=== PATIENT | female | born 1980 | race Caucasian/White ===

== ENCOUNTER 2019-09-04 08:41 | Outpatient (CLI) | payer BC, SELFPAY ==
--- NOTE | 2019-09-04 | XR_ITS ---
WS: [id number] CHEST 2 VIEWS HISTORY: DYSPNEA COMPARISON: 03/07/2017 Lungs: Well-expanded lungs. No pneumonia. Stable calcification LEFT upper lobe. Normal vasculature. N o pleural effusion. Cardiac size: Normal. Mediastinum/Aorta: Normal mediastinum. Bones: Normal. Prior cholecystectomy. XR/XR chest 2V* [id number] IMPRESSION: Stable chest with no acute cardiopulmonary disease.
== END 2019-09-04 08:42 | disposition home or self-care (01) ==
PROVIDERS: Family Provider Family Medicine; PCP Family Medicine; Visit Provider Family Medicine
DX: Z76.89 Persons encountering health services in other specified circumstances (principal)

== ENCOUNTER 2019-09-04 09:19 | Outpatient (REF) | payer BC, SELFPAY ==
[2019-09-04 09:37] LABS: D Dimer 0.35 ug/mIFEU (0-0.59)
== END 2019-09-04 09:20 | disposition home or self-care (01) ==
LOC: LAB 09:19
PROVIDERS: Family Provider Family Medicine; PCP Family Medicine; Visit Provider Nurse Practitioner Family
DX: Z01.89 Encounter for other specified special examinations (principal)
CPT/HCPCS: 85378

== ENCOUNTER 2019-09-04 15:28 | Emergency (ER) | payer BC, SELFPAY ==
[2019-09-04 15:45] VITALS: BP 131/80; PULSE 71; RESP 16; TEMP 36.6; O2SAT 99; BMI 27.1
--- NOTE | 2019-09-04 15:51 | PC.NURSE ---
Patient seated in the waiting room. Will continue to monitor.
[2019-09-04 16:37] LABS: Basophils % 0.3 %; Eosinophils % 0.2 %; Hematocrit 46.6 % (37.0-47.0); Hemoglobin 15.7 g/dL (11.5-15.3); Lymphocytes # 3.1 10^3/uL (0.8-4.8); Lymphocytes % 53.7 %; Mean Corpuscular HGB Conc 33.7 g/dL (30.0-36.0); Mean Corpuscular Hemoglobin 27.5 pg (28.0-34.0); Mean Corpuscular Volume 81.8 fL (81-99); Mean Platelet Volume 9.8 fL (7.4-10.4); Monocytes # 0.5 10^3/uL (0.2-0.9); Monocytes % 8.6 %; Neutrophils # 2.1 10^3/uL (1.8-7.7); Nucleated Red Blood Cells % 0 %; Platelet Count 344 10^3/cmm (130-400); White Blood Count 5.8 10^3/uL (4.0-10.0)
[2019-09-04 16:51] LABS: Slide Review Slide Review Perform
[2019-09-04 16:58] LABS: Alanine Aminotransferase 272 U/L (0-33); Albumin Level 4.5 g/dL (3.5-5.2); Alkaline Phosphatase 75 IU/L (35-105); Aspartate Amino Transferase 204 U/L (0-32); Blood Urea Nitrogen 9 mg/dL (6-20); Calcium 9.9 mg/dL (8.5-10.5); Carbon Dioxide 26 mmol/L (22-29); Chloride 99 mmol/L (98-107); Globulin 3.2 g/dL (1.3-4.6); Glomerular Filtration Rate 80.3 mL/min (90-130); Glucose 88 mg/dL (74-109); Lipase 46 U/L (13-60); Sodium 137 mmol/L (136-145); Total Bilirubin 0.5 mg/dL (0.15-1.2); Total Protein 7.7 g/dL (6.6-8.7)
[2019-09-04 17:24] LABS: HCG Qualitative Urine. Negative (Negative)
--- NOTE | 2019-09-04 19:39 | ED_ITS ---
Entered by Cherise Barajas, acting as scribe for Carolina Mcdonald MD Sep 04, 2019 15:28 HPI - Abdominal Pain General: Chief Complaint: Abdominal Pain Stated Complaint: ABD PAIN Time Seen by Provider: 09/04/19 19:39 Source: patient and RN notes reviewed Mode of arrival: ambulatory Limitations: no limitations History of Present Illness: HPI narrative: 38 yo female presents to ED on advise from [facility] due to an elevated liver enzyme reading. The patient states she thought she had the flu that began on 08.21.2019 - body aches, diarrhea, fever. She has lost 15 pounds since that time. She went to [facility] recently and they ran labs. The patient was called today and advised to come to ER. She said she has pain in RUQ and any oral intake causes extreme abdominal pain. She hasn't vomited simply because she is able to keep herself from doing so. MD elicited complaint: abdominal pain Pertinent past history: none Onset (ago): week(s) (2) Pain Consistency: constant Location: RUQ Severity: moderate Quality: cramping Radiation: none Migration to: no migration Exacerbating factors: eating Relieving factors: nothing Associated Symptoms: Reports diarrhea and nausea; Denies dysuria and fever(s) Review of Systems Const: Denies: fever Eyes: Denies: blurry vision or eye discomfort ENMT: Denies: throat pain or dental pain Card: Denies: chest pain Resp: Denies: shortness of breath GI: Reports: abdominal pain, nausea and diarrhea : Denies: painful urination Musc: Denies: neck pain or back pain Skin/Breast: Denies: rash Neuro: Denies: headache Psych: Denies: depression Richard/Lymph: Denies: easy bruising All/Imm: Denies: hives PFSH ED PFSH: Statuses (acute, chronic, etc) shown below reflect problem list status as previously entered and may not be historically accurate Social History Smoking and tobacco status: never smoked Physical Exam Const: COMMON NORMALS: no apparent distress, oriented x3 and healthy appearing HENMT: COMMON NORMALS: normocephalic and head/scalp atraumatic HEAD & SCALP: normocephalic and atraumatic Eye: COMMON NORMALS: PERRL and EOMs intact bilaterally PUPIL: Yes PERRL Neck/C-Spine: COMMON NORMALS: full ROM and supple Chest: COMMONS NORMALS: inspection of chest normal and palpation of chest normal Resp: COMMON NORMALS: normal respiratory effort, no retractions, no use of accessory muscles and clear to auscultation bilaterally AUSCULTATION: clear to auscultation bilaterally Cardio: COMMON NORMALS: regular rate, regular rhythm and no murmurs RATE: regular rate RHYTHM: regular rhythm GI: COMMON NORMALS: normal to inspection, nondistended, normoactive bowel sounds, soft to palpation, non-tender and no masses PALPATION: Yes soft Extremity: COMMON NORMALS: normal to inspection and full ROM Neuro: COMMON NORMALS: oriented x3, moves all extremities and no focal motor deficits Psych: COMMON NORMALS: mental status grossly normal, thought process normal and cooperative THOUGHT PROCESS: normal thought process Skin: COMMON NORMALS: no rashes or lesions noted and no wounds GENERAL SKIN EXAM: no rashes or lesions noted Course Vital Signs: Vital signs: Vital Signs Temperature 97.8 F 09/04/19 15:45 Pulse Rate 71 09/04/19 15:45 Respiratory Rate 16 09/04/19 15:45 Blood Pressure 131/80 09/04/19 15:45 Pulse Oximetry 99 09/04/19 15:45 MDM - Abdominal Pain MDM Narrative: Medical decision making narrative: Patient presents here with abdominal pain is found to have no findings here on CT scan. She is also had vomiting and a cough is all likely viral in origin. She feels much improved here after IV fluids. Will prescribe her Zofran she is to continue hydrate at home. Patient's liver enzymes are mildly elevated and did have them followed. Patient is to return if worsening. Lab Data: Labs: Lab Results 09/04/19 09/04/19 09/04/19 Range/Units 16:26 16:26 16:56 WBC 5.8 (4.0-10.0) 10^3/ uL RBC 5.70 H (4.1-5.3) 10^6/u L Hgb 15.7 H (11.5-15.3) g/dL Hct 46.6 (37.0-47.0) % MCV 81.8 (81-99) fL MCH 27.5 L (28.0-34.0) pg MCHC 33.7 (30.0-36.0) g/dL RDW 12.0 L (12.1-15.1) % Plt Count 344 (130-400) 10^3/c mm MPV 9.8 (7.4-10.4) fL Neut % (Auto) 37.0 % Lymph % (Auto) 53.7 % [place] % (Auto) 8.6 % Eos % (Auto) 0.2 % Baso % (Auto) 0.3 % Neut # (Auto) 2.1 (1.8-7.7) 10^3/u L Lymph # (Auto) 3.1 (0.8-4.8) 10^3/u L [place] # (Auto) 0.5 (0.2-0.9) 10^3/u L Eos # (Auto) 0.0 (0.0-0.8) 10^3/u L Baso # (Auto) 0.0 (0.0-0.1) 10^3/u L Nucleated RBC % (a uto) 0 % Nucleated RBCs # 0.0 /100WBC Sodium 137 (136-145) mmol/L Potassium 4.0 (3.5-5.1) mmol/L Chloride 99 (98-107) mmol/L Carbon Dioxide 26 (22-29) mmol/L Anion Gap 16.0 (5-19) BUN 9 (6-20) mg/dL Creatinine 0.8 (0.5-0.9) mg/dL GFR Calculation 80.3 L (90-130) mL/min Glucose 88 (74-109) mg/dL Calcium 9.9 (8.5-10.5) mg/dL Total Bilirubin 0.5 (0.15-1.2) mg/dL AST 204 H (0-32) U/L ALT 272 H (0-33) U/L Alkaline Phosphata se 75 (35-105) IU/L Total Protein 7.7 (6.6-8.7) g/dL Albumin 4.5 (3.5-5.2) g/dL Globulin 3.2 (1.3-4.6) g/dL Lipase 46 (13-60) U/L HCG, Qual Negative (Negative) Discharge Plan Discharge Patient Disposition: Home, Self-Care Clinical Impression: Abdominal pain Qualifiers: Abdominal location: generalized Qualified Code(s): R10.84 - Generalized abdominal pain Condition: Stable Prescriptions: New Zofran 4 mg tablet 4 mg PO QID PRN (Reason: nausea and vomiting) Qty: 14 RF: 0 EC-Naprosyn 500 mg tablet,delayed release (DR/EC) 500 mg PO BID PRN (Reason: pain) Qty: 20 RF: 0 Discharge Orders: Discharge Order (Routine); Ordered 09/04/19 Ordered By: Carolina Mcdonald Referrals: Ashley Elizabeth DO [Primary Care Provider] - 4-7 days Discharge Diet: Advance as tolerated Discharge Activity: Resume usual activity Patient Instructions: Abdominal Pain (ED) Coding Level of Care Code ED Reproductive Endocrinologist for Chg Fwd Exam Problem Focused The documentation recorded by the Karl knutson Valerie R, accurately reflects the service I personally performed and the decisions made by Tamara obrien Korby, MD Sep 04, 2019 15:28
--- NOTE | 2019-09-04 19:39 | US_ITS ---
WS: [id number] ULTRASOUND ABDOMEN LIMITED CLINICAL INFORMATION: abd pain COMPARISON: None. FINDINGS: Liver Size: Normal. Craniocaudal length: 15.0 cm. Echogenicity: Normal. Surface nodularity: None. Mass (size and location): None. Bile ducts Intrahepatic ducts: Normal. Common bile duct diameter: 1.7 mm. Gallbladder Removed Pancreas Normal as visualized. Right kidney: Normal. Hydronephrosis: None. Size: 9.2 cm x 5.1 cm x 5.5 cm. Abdominal aorta and IVC Visualized portions are normal. Ascites: None. US/US gall bladder [id number] IMPRESSION: 1. Liver is normal. 2. Gallbladder has been removed. 3. Normal common bile duct. 4. No hydronephrosis in right kidney.
--- NOTE | 2019-09-04 19:43 | CTR_ITS ---
PROCEDURE INFORMATION: Exam: CT Abdomen And Pelvis With Contrast Exam date and time: 09/04/2019 7:52 PM Age: 38 years old Clinical indication: Nausea and vomiting; Prior surgery; Surgery date: 6+ months; Surgery type: Gb, appy, hyster; Additional info: Abd pain TECHNIQUE: Imaging protocol: Computed tomography of the abdomen and pelvis with intravenous contrast. Total DLP: 726.21 mGy-cm Radiation optimization: All CT scans at this facility use at least one of these dose optimization techniques: automated exposure control; mA and/or kV adjustment per patient size (includes targeted exams where dose is matched to clinical indication); or iterative reconstruction. Contrast material: OMNIPAQUE 300; Contrast volume: 95 ml; Contrast route: IV; COMPARISON: CT Abdomen/Pelvis [facility] [id number] 08/03/2013 11:22 AM FINDINGS: Lungs: There is mild pneumonitis in the right middle lobe and left lower lobe. Liver: Unremarkable.No mass. Gallbladder and bile ducts: There has been a cholecystectomy. There is no common bile duct dilation. Pancreas: Normal. No ductal dilation. Spleen: Normal. No splenomegaly. Adrenals: Normal. No mass. Kidneys and ureters: There is punctate nephrolithiasis. No hydronephrosis. Unchanged 8 mm hypodensity upper pole right kidney too small to characterize. Otherwise the kidneys have an appropriate appearance. Stomach and bowel: Unremarkable. No obstruction. No mucosal thickening. Appendix: There has been an appendectomy. Intraperitoneal space: There is a trace amount of fluid in the pelvis which is within physiologic limits for a menstruating female. Vasculature: Unremarkable.No abdominal aortic aneurysm. Lymph nodes: Unremarkable.No enlarged lymph nodes. Bladder: Unremarkable as visualized. Reproductive: There has been a hysterectomy. There is a 1.7 cm partially collapsed right ovarian cyst. Bones/joints: Unremarkable. No acute fracture. Soft tissues: Unremarkable. CT/CT abdomen pelvis w con* [id number] IMPRESSION: 1. There is mild pneumonitis in the right middle lobe and left lower lobe. 2. There is a 1.7 cm partially collapsed right ovarian cyst. 3. No bowel thickening or inflammatory changes. Postoperative changes are noted as above. Radiation Dose CTDIVOL = (mGy): DLP = 726.21 (mGy-cm)
[2019-09-04] MEDS: iohexol 300 mg/mL 100 mL Btl IV (19:56)
[2019-09-04] MEDS: sodium chloride 0.9% 1,000 ML 999 ML IV (20:25)
[2019-09-04] MEDS: ondansetron 2 mg/ML SDV 2 mL 4 MG IVP (20:25)
[2019-09-04 21:37] VITALS: BP 99/62; PULSE 62; RESP 14; O2SAT 98
--- NOTE | 2019-09-04 21:38 | PC.NURSE ---
Zofran 4mg po 2 tablets sent home with patient
== END 2019-09-04 21:38 | disposition home or self-care (01) ==
PROVIDERS: Emergency Provider Emergency Medicine; Family Provider Family Medicine; PCP Family Medicine
DX: R10.84 Generalized abdominal pain (principal)
CPT/HCPCS: 74177; 76705; 80053; 81025; 83690; 85025; 96360; 96361; 96374; 99281; 99283; J2405; J7030; Q9967

== ENCOUNTER 2019-10-02 10:18 | Outpatient (CLI) | payer BC, SELFPAY ==
--- NOTE | 2019-10-02 | XR_ITS ---
WS: [id number] ABDOMEN 2 VIEW(S) HISTORY: CONSTIPATION COMPARISON: 12/02/2016 Normal bowel gas pattern. No free air. 2 mm calcification lower pole LEFT kidney. Numerous phleboliths are present in the pelvis. Prior chol ecystectomy. Mild RIGHT convex curvature lumbar spine. XR/XR abdomen min 2V [id number] IMPRESSION: 1. No GI tract obstruction. 2. Prior cholecystectomy.
== END 2019-10-02 10:19 | disposition home or self-care (01) ==
LOC: RADOUTREAD 11:15
PROVIDERS: Family Provider Family Medicine; PCP Family Medicine; Visit Provider Nurse Practitioner
DX: Z01.89 Encounter for other specified special examinations (principal)

== ENCOUNTER 2020-02-23 10:10 | Outpatient (CLI) | payer BC, SELFPAY ==
--- NOTE | 2020-02-23 10:34 | MM_ITS ---
WS: [id number] DIAGNOSTIC BILATERAL DIGITAL MAMMOGRAM WITH CAD Bilateral breast ultrasound, limited HISTORY: LEFT BREAST LUMP COMPARISON: None available. TECHNIQUE: Bilateral craniocaudad, mediolateral oblique, and mediolateral views are submitted. Spot c ompression RIGHT and LEFT cc views. Computer aided detection utilized. Breast composition: The breasts are heterogeneously dense, which may obscure small masses. Triangular markers are placed in multiple areas over each breast in the areas of palpable concern. There are no underlying masses identified or distortion. No suspicious calcifications or nipple retraction. Bilateral breast ultrasound. Ultrasound is directed to the areas of palpable concern. There are no suspicious masses or shadowing. Small cyst in the LEFT breast at 1:00, 2 cm from the nipple with a maximum diameter 4 mm. MM/[place] [id number] IMPRESSION: BI-RADS: 2-Benign FOLLOW UP: 1 Year Follow-up
== END 2020-02-23 10:11 | disposition home or self-care (01) ==
LOC: RADSHAW 10:16
PROVIDERS: PCP Nurse Practitioner; Visit Provider Nurse Practitioner
DX: N63.20 Unspecified lump in the left breast, unspecified quadrant (principal)
CPT/HCPCS: 76642; 77066

== ENCOUNTER → 2020-03-12 10:48 | Outpatient (BNVA) | payer BC, SELFPAY | PROVIDERS: PCP Physician Assistant Medical; Visit Provider Urology | DX: N30.20 Other chronic cystitis without hematuria (principal); N31.9 Neuromuscular dysfunction of bladder, unspecified; R33.9 Retention of urine, unspecified | CPT/HCPCS: 81001 ==

== ENCOUNTER 2020-05-13 08:04 | Outpatient (CLI) | payer BC, SELFPAY ==
--- NOTE | 2020-05-13 08:08 | MR_ITS ---
WS: [id number] MRCP (MAGNETIC RESONANCE CHOLANGIOPANCREATOGRAPHY) HISTORY: Post prandial abdominal pain COMPARISON: 08/03/2013, 09/04/2019 TECHNIQUE: Multiple sequences are performed to evaluate the intra and extrahepatic ducts. Prior cholecystectomy. No bile duct dilatation. Common bile duct is very small caliber, 3 to 4 mm. No intraluminal filling defect. Pancreas is negative. Normal size pancreatic duct. Visualized aorta, sp scott and kidneys are negative. Small, subcentimeter cysts in the RIGHT kidney. No adenopathy or ascit es. In the LEFT upper abdomen there is a mixed signal intensity soft tissue mass which is ill-defined. Mi ld mass effect upon the descending colon. Mild displacement of the pancreatic tail. Suspect this is a rising from the small bowel. This area of abnormal bowel wall thickening and masslike soft tissue ayana sures 5.7 x 5.8 cm. MR/MR MRCP [id number] IMPRESSION: 1. Status post cholecystectomy. 2. Normal MRCP. No bile duct dilatation. 3. Soft tissue mass in the LEFT upper abdomen. Probably related to the small b owel with adjacent mass effect. 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 Recommend follow-up CT abdomen and pelvis with IV and oral contrast. Notified Andrwe Curran MD at 05/13/2020 10:11 AM.
== END 2020-05-13 08:05 | disposition home or self-care (01) ==
LOC: RADSHAW 08:06
PROVIDERS: PCP Internal Medicine; Visit Provider Internal Medicine
DX: R10.9 Unspecified abdominal pain (principal); R19.00 Intra-abdominal and pelvic swelling, mass and lump, unspecified site
CPT/HCPCS: 74181

== ENCOUNTER 2020-05-14 07:58 | Outpatient (CLI) | payer BC, SELFPAY ==
[2020-05-14] MEDS: iohexol 300 mg/mL 50 mL Btl PO ×2 (08:25)
--- NOTE | 2020-05-14 09:30 | CT_ITS ---
WS: [id number] CT ABDOMEN AND PELVIS WITH CONTRAST HISTORY: Mass found on MRCP. Small bowel abnormality. TECHNIQUE: Imaging performed of the abdomen and pelvis with IV contrast. Single phase imaging of the abdomen. Coronal and sagittal reformats are submitted. All CT scans at [facility] use at least one of these dose optimization techniques: automated exposure control; mA and/or kV adjustment per patient size (includes targeted exams where dose is matched to clinical indication); or iterativ e reconstruction. IV CONTRAST: Omnipaque 300; 95 mL IV. Oral contrast: Yes. DLP: 369.89 mGy.cm COMPARISON: 09/04/2019, 08/03/2013. Lower thorax: Lung bases are clear. Heart is normal size. No hiatal hernia. Liver/biliary system: Coarsened echotexture throughout the liver. No bile duct dilatation. Small cyst along the inferior tip of the liver was present on the prior studies. Gallbladder: Status post cholecystectomy. Pancreas: Normal. Spleen: Normal. Adrenal glands: Normal. Right kidney: Cortical cyst upper pole measures 7 mm. No obstruction. Left kidney: Normal. Aorta: Normal. Lymphadenopathy: None. Free fluid: Small amount of free fluid in the pelvis. GI tract: Abnormal appearance of the proximal GI tract. Good distention of the stomach with oral cont rast. There is some mild thickening involving the fundus of the stomach. There is additional mild thi ckening involving the third and fourth portion of the duodenum. The wall measures up to 5 mm. In the proximal small bowel in the LEFT upper abdomen there is circumferential wall thickening measuring up to 4 mm. Small bowel loops are thickened and nodular. This is in the area of the previously described possible mass. Small bowel without separation. There is no discrete mass but the small bowel wall is thickened and there is separation of the valvulae conniventes. The mid to distal small bowel is norm al. Abdominal wall: Unremarkable abdominal wall. No hernia. Pelvis: Small amount of free fluid in the pelvis. Prior hysterectomy. Bones: Unremarkable. CT/CT abdomen pelvis w con* [id number] IMPRESSION: 1. Abnormal duodenum and proximal small bowel. There is diffuse wall thickenin g but no obstruction. Clustered loops of small bowel in LEFT upper abdomen with wall thickening corresponding to the abnormality noted on the recent MRCP. Als o on a prior CT from 09/04/2019 and there was clustering of the small bowel in th e LEFT upper abdomen with mucosal edema. This is most likely due to inflammator y bowel process such as Crohn's disease/regional enteritis. Consider further ev aluation and biopsy. Additional etiologies consider are amyloidosis and lymphom a. There are no associated enlarged lymph nodes. 2. Prior cholecystectomy. 3. No bile duct dilatation.
[2020-05-14] MEDS: iohexol 300 mg/mL 100 mL Btl IV (09:41)
== END 2020-05-14 07:59 | disposition home or self-care (01) ==
LOC: RAD 08:06
PROVIDERS: PCP Physician Assistant Medical; Visit Provider Internal Medicine
DX: R19.00 Intra-abdominal and pelvic swelling, mass and lump, unspecified site (principal); Z90.49 Acquired absence of other specified parts of digestive tract
CPT/HCPCS: 74177

== ENCOUNTER → 2020-05-15 10:14 | Outpatient (BNVA) | payer BC, SELFPAY | PROVIDERS: PCP Physician Assistant Medical; Visit Provider Internal Medicine | DX: K63.9 Disease of intestine, unspecified (principal) | CPT/HCPCS: 82784; 83516; 84443; 85025; 85651; 86140 ==

== ENCOUNTER 2020-05-16 13:35 | Outpatient (CLI) | payer BC, SELFPAY | END 2020-05-16 13:36 | disposition home or self-care (01) | LOC: LAB 13:40 | PROVIDERS: PCP Physician Assistant Medical; Visit Provider Internal Medicine | DX: K63.9 Disease of intestine, unspecified (principal) | CPT/HCPCS: 83630; 83993; 87493; 87506 ==

== ENCOUNTER → 2021-03-11 09:52 | Outpatient (BNVA) | payer BC, SELFPAY | PROVIDERS: PCP Internal Medicine; Visit Provider Urology | DX: N30.20 Other chronic cystitis without hematuria (principal); R33.9 Retention of urine, unspecified; N31.9 Neuromuscular dysfunction of bladder, unspecified | CPT/HCPCS: 81003 ==

== ENCOUNTER → 2021-07-22 16:02 | Outpatient (BNVA) | payer BC, SELFPAY | PROVIDERS: PCP Internal Medicine; Visit Provider Internal Medicine | DX: R10.13 Epigastric pain (principal) | CPT/HCPCS: 80053; 85651; 86140 ==

== ENCOUNTER 2021-07-24 09:58 | Outpatient (CLI) | payer BC, SELFPAY | END 2021-07-24 09:59 | disposition home or self-care (01) | LOC: LAB 10:01 | PROVIDERS: PCP Internal Medicine; Visit Provider Internal Medicine | DX: R10.13 Epigastric pain (principal) | CPT/HCPCS: 84110; 84120 ==

== ENCOUNTER 2021-08-25 07:44 | Outpatient (CLI) | payer BC, SELFPAY ==
[2021-08-25 08:45] LABS: Alanine Aminotransferase 29 U/L (0-33); Albumin Level 4.6 g/dL (3.5-5.2); Alkaline Phosphatase 69 IU/L (35-105); Anion Gap 15.6 (5-19); Aspartate Amino Transferase 22 U/L (0-32); Blood Urea Nitrogen 11 mg/dL (6-20); C Reactive Protein 0.3 mg/L (0.0-4.9); Calcium 8.7 mg/dL (8.5-10.5); Carbon Dioxide 25 mmol/L (22-29); Chloride 104 mmol/L (98-107); Free T4 Free Thyroxine 1.14 ng/dL (0.82-1.77); Globulin 2.1 g/dL (1.3-4.6); Glomerular Filtration Rate 92.7 mL/min (90-130); Glucose 85 mg/dL (65-115); Osmolality Calculated 289 mOsm/kg (285-295); Potassium 4.6 mmol/L (3.5-5.1); Sodium 140 mmol/L (136-145); Thyroid Stimulating Hormone 3.41 uIU/mL (0.27-4.20); Total Bilirubin 0.6 mg/dL (0.15-1.2); Total Protein 6.7 g/dL (6.6-8.7)
[2021-08-25 08:46] LABS: Urine Creatinine 108 mg/dL (28-217)
[2021-08-25 08:46] LABS: Cortisol Random 9.72 ug/dL (2.47-19.5)
[2021-08-25 09:10] LABS: Total Volume Urine 875 ml
[2021-08-26 13:23] LABS: T3 Total 96 ng/dL (76-181)
[2021-08-26 14:27] LABS: Thyroglobulin AB <1 IU/mL (< or = 1)
[2021-08-28 08:22] LABS: Anti-Nuclear Antibody Screen NEGATIVE (NEGATIVE)
[2021-08-29 17:17] LABS: 24 Hour Urine Volume 875 mL; 5-HIAA, 24 Hour Urine 4.1 mg/24 h (<=6.0)
[2021-08-30 09:07] LABS: Thyroglobulin Level 21.8 ng/mL
[2021-09-02 17:52] LABS: TSH Receptor Binding Antibody <1.00 IU/L (< OR = 2.00)
== END 2021-08-25 07:45 | disposition home or self-care (01) ==
PROVIDERS: PCP Internal Medicine; Visit Provider Internal Medicine
DX: R19.7 Diarrhea, unspecified (principal); N30.20 Other chronic cystitis without hematuria; R10.13 Epigastric pain; R63.4 Abnormal weight loss
CPT/HCPCS: 36415; 80053; 82533; 82570; 83497; 83516; 84432; 84439; 84443; 84480; 86038; 86140; 86800

== ENCOUNTER 2021-10-03 06:53 | Outpatient (CLI) | payer BC, SELFPAY ==
--- NOTE | 2021-10-03 07:15 | MR_ITS ---
WS: [id number] MRI BRAIN WITH AND WITHOUT CONTRAST HISTORY: R20.0 - Anesthesia of skin COMPARISON: None available. TECHNIQUE: Multiplanar imaging performed through the brain with MultiHance 13 ml's IV. No acute infarcts are seen. Joshi-white matter differentiation is well preserved. No susceptibility artifacts or prior lacunar infarcts. Ventricles and extra-axial spaces are normal. Clivus and pituitary gland are normal. Visualized posterior fossa and brainstem are also normal. Postcontrast images are negative for masses or vascular malformations. Dural venous sinuses are normal. Paranasal sinuses: Well aerated with no significant disease. Mastoid air cells: Normal. Calvarium and scalp: Normal. MR/MR head wo/w con [id number] IMPRESSION: 1. Normal MRI brain with contrast. 2. No mass or abnormal enhancement.
[2021-10-03] MEDS: gadobenate dimeglumine 20 mL vial IV (08:22)
== END 2021-10-03 06:54 | disposition home or self-care (01) ==
PROVIDERS: PCP Internal Medicine; Visit Provider Internal Medicine
DX: R20.0 Anesthesia of skin (principal); R20.2 Paresthesia of skin
CPT/HCPCS: 70553

== ENCOUNTER 2021-10-14 06:58 | Outpatient (CLI) | payer BC, SELFPAY ==
--- NOTE | 2021-10-14 07:00 | US_ITS ---
WS: [id number] Thyroid ultrasound, 10/14/2021 Clinical Data: +LN-assess , assess of thyroid nodule and submandibular mass Comparison: None. Findings: The right lobe of thyroid measures 4.6 cm x 1.2 cm x 1.1 cm. The left lobe measures 3.9 cm x 1.1 cm x 1.0 cm. The isthmus measured 0.3 mm. The echotexture of the thyroid is uniform. No nodules, cyst or masses are seen. There are bilateral small lymph nodes including one superior to the isthmus. US/US thyroid [id number] Impression: Normal thyroid ultrasound.
== END 2021-10-14 06:59 | disposition home or self-care (01) ==
LOC: RAD 07:00
PROVIDERS: PCP Internal Medicine; Visit Provider Internal Medicine
DX: R22.1 Localized swelling, mass and lump, neck (principal)
CPT/HCPCS: 76536

== ENCOUNTER 2021-10-29 08:41 | Outpatient (CLI) | payer BC, SELFPAY ==
[2021-10-29 11:34] LABS: Basophils % 0.6 %; Eosinophils % 0.6 %; Hematocrit 42.5 % (37.0-47.0); Hemoglobin 13.9 g/dL (11.5-15.3); Lymphocytes % 43.1 %; Mean Corpuscular HGB Conc 32.7 g/dL (30.0-36.0); Mean Corpuscular Hemoglobin 29.2 pg (28.0-34.0); Mean Corpuscular Volume 89.3 fl (81-99); Mean Platelet Volume 10.9 fL (7.4-10.4); Monocytes # 0.4 10^3/uL (0.2-0.9); Monocytes % 6.4 %; Neutrophils # 3.36 10^3/uL (1.8-7.7); Nucleated Red Blood Cells % 0 %; Platelet Count 221 10^3/cmm (130-400); Red Blood Count 4.76 10^6/uL (4.1-5.3); Red Cell Distribution Width 12.4 % (12.1-15.1); White Blood Count 6.9 10^3/uL (4.0-10.0)
[2021-10-29 11:37] LABS: LAB Peripheral Smear Sent for Review
[2021-10-29 11:42] LABS: Erythrocyte Sedimentation Rate < 1 mm/hr (0-15)
[2021-10-29 12:02] LABS: Alanine Aminotransferase 26 U/L (0-33); Albumin Level 4.6 g/dL (3.5-5.2); Alkaline Phosphatase 64 IU/L (35-105); Amylase 70 U/L (28-100); Anion Gap 14.4 (5-19); Aspartate Amino Transferase 26 U/L (0-32); Blood Urea Nitrogen 11 mg/dL (6-20); Calcium 9.7 mg/dL (8.5-10.5); Carbon Dioxide 25 mmol/L (22-29); Chloride 103 mmol/L (98-107); Globulin 2.3 g/dL (1.3-4.6); Glomerular Filtration Rate 92.7 mL/min (90-130); Glucose 86 mg/dL (65-115); Iron 65 ug/dL (37-145); Lactate Dehydrogenase 138 U/L (135-214); Lipase 22 U/L (13-60); Osmolality Calculated 285 mOsm/kg (285-295); Potassium 4.4 mmol/L (3.5-5.1); Sodium 138 mmol/L (136-145); Thyroid Stimulating Hormone 2.52 uIU/mL (0.27-4.20); Total Bilirubin 0.5 mg/dL (0.15-1.2); Total Iron Binding Capacity 232 mcg/dl; Total Protein 6.9 g/dL (6.6-8.7); Unsaturated Iron Binding 167 ug/dL (112-347)
--- NOTE | 2021-10-29 14:26 | ONC CON_ITS ---
Dr. Goddard New Patient Note Patient: Talia Parr Unit #: [id number]: 1980 Dicatated By: Jose M Goddard M.D.Date of Visit: Oct 29, 2021 Onc MED New Patient/Consult Referring Physician: Dr. Perry Curran M.D. Chief Complaint: Lymphadenopathy. History of Present Illness: This is a 40 year-old woman with generalized lymphadenopathy. She tells me that she has been sick for 26 months, since October 2019. In reviewing her records, she had actually been seen in the emergency room initially in September 2019 with complaints of right upper quadrant abdominal pain and nausea. She had significant transaminitis, but with normal lipase. Her CT abdomen/pelvis showed mild pneumonitis in the right middle and in the left lower lobe, and a partially collapsed 1.7 cm right ovarian cyst. There were no other acute findings. The liver and pancreas appeared normal. During subsequent follow-up she continued to have pain in the epigastric area. Her further evaluation included EGD and colonoscopy. Her MRCP in May 2020 showed no bile duct dilatation. There was suspected soft tissue mass in the left upper abdomen, and a subsequent CT abdomen/pelvis showed diffuse wall thickening in the duodenum and proximal small bowel, but without obstruction. Clustered loops of small bowel were noted in the left upper abdomen with wall thickening which appear to correspond to the abnormality noted on the MRCP. The findings were felt to be suspicious for an inflammatory bowel bowel process. In July 2020 she underwent ERCP with biliary sphincterotomy and placement of temporary pancreatic duct stent, but with no apparent clinical benefit. During follow-up she continued to have pain in the epigastric area and in the mid back. She developed multiple other complaints including severe fatigue, nausea/anorexia, low-grade fever, night sweating, itching, and generalized aching. She had significant weight loss, and she also developed mild, generalized lymphadenopathy. In April 2021 she underwent evaluation at the [facility]. Her PET/CT on 04/10/2021 showed FDG avid bilateral cervical and inguinal lymphadenopathy with the largest FDG avid lymph nodes noted within the right cervical II chain, maximum SUV 8.5. FDG avid inguinal nodes were more prominent on the left compared to the right, the largest measuring 6 mm with SUV 6.7. There was felt to be probable physiologic FDG activity within the perineum and vaginal canal. She underwent excisional biopsy of 2 right cervical IIA lymph nodes on 06/03/2021. Pathology showed benign lymph nodes with reactive germinal center and paracortical hyperplasia. There was no morphologic evidence of malignancy. Flow cytometry revealed no monotypic B-cell population and no phenotypically abnormal T-cell population. She had medical oncology consultation with Dr. Huy Gilliland at [facility] on 07/10/2021. In the absence of any pathological evidence of malignancy, he recommended considering evaluation by ID and he also recommended evaluating for porphyria. A subsequent 24-hour urinary porphyrin study was negative, and in August 2021 she also was confirmed to have normal 24-hour 5-HIAA. She is now seeking a second medical oncology opinion. She continues to complain of having severe pain in the mid back and in the epigastric area. It fluctuates in intensity with a seeming random pattern, but the pain is constant. At times it is severe enough that she feels like it is ripping her apart. She sometimes has nausea and her bowels fluctuate between diarrhea and getting completely bound up. Her appetite is poor, at this point her weight is down a total of 63 pounds. Her energy is terrible. 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 Her ECOG score is 1. She has frequent low-grade fever and chills, and she also has night sweating on a frequent basis. She continues to have generalized itching. She has not had sore mouth or throat, and she has no difficulty swallowing. She sometimes has cough. Breathing is okay other than she does feel short of breath at those times when she is feeling extremely weak. She has not been having chest pain. She has ongoing problems with urinary hesitancy, for which she has been taking tamsulosin. She currently has no other complaints. She has generalized aching. She reports having swelling in her hands and face and sometimes in her legs. She has headaches frequently, at least 3 or 4 times a week. She sometimes feels lightheaded. She has numbness in her lips and fingers and sometimes in her toes. She bruises easily. Past Medical History: Her medical history includes bladder dysfunction, chronic cystitis, endometriosis, and urolithiasis. Past Surgical History: She underwent excisional biopsy of right cervical lymph nodes on 06/03/2021. Her other surgical/procedural history includes colonoscopy in 2019, ERCP with placement and subsequent removal of pancreatic stent in 2019, laparoscopy for lysis of adhesions in 2003 and in 2007, cystoscopy in 2007, hysterectomy with unilateral left oophorectomy in 2006, kidney stone removal in 2005, laparoscopy for endometriosis in 2003, cholecystectomy in 2001, wisdom teeth extraction in 1999, and appendectomy in 1995. Medications: Laxative Pills Tablet Oral PRN, Probiotic Product Pack Oral Take as Directed, Tamsulosin HCl 1 Tablet (of 0.4 mg) Capsule Oral daily Allergies: Amoxicillin, Estrogens Conjugated, Morphine Sulfate, Penicillins, and Premarin. Social History: Ms. Parr is . She is a non-smoker. She does not drink alcohol. Family History: Both parents are still living, father at age 62 and mother at age 61. He has hypertension and hyperlipidemia. She has rheumatoid arthritis. A sister has hypothyroidism. Her maternal grandmother had heart disease. Her paternal grandmother had diabetes and melanoma. A maternal great grandmother had melanoma and thyroid cancer. Her other maternal great grandmother had a [employer] cancer. A great grandmother on her father's side had leukemia and she had a daughter with multiple myeloma. A paternal uncle had pancreatic cancer and a paternal aunt had colon cancer. Review Of Symptoms: Constitutional - Her energy is somewhat variable, but overall terrible. Some days she is able to do housework and help with farm chores, but some days she cannot do anything. Her appetite is poor. She has had a weight loss of 63 pounds. She frequently runs low-grade fever with chills and she also has night sweating on a frequent basis. She has itching all the time. ECOG score is 1, Eyes - No change in vision, ENMT - No hearing loss or tinnitus. No sinus congestion/drainage. No mouth sores. No sore throat or difficulty swallowing, Hematologic/Lymphatic - She bruises easily. She has no other bleeding, Respiratory - No shortness of breath. She sometimes has cough. No pleuritic pain or hemoptysis, Cardiovascular - No angina pain. No palpitations, Gastrointestinal - She has pain in the epigastric area and right upper quadrant. She has had pancreatitis. She sometimes has nausea. She has not been having acid reflux. Her bowels fluctuate between diarrhea and constipation. She has not been aware of any blood in the stool, Genitourinary (F) - She has history of cystitis and recurrent urinary tract infection. She has bladder dysfunction with hesitancy/urinary retention. She currently is not having dysuria or hematuria, and she does not complain of urinary frequency, urgency, or incontinence, Musculoskeletal - She has generalized aching, Integumentary - She has had skin rash intermittently around the eyes, in the neck area, and on her legs, Neurologic - She has headache at least 3-4 times per week. She sometimes has lightheadedness. She has numbness in her lips, fingers, and sometimes in her toes, Psychiatric - No anxiety or depression. She sometimes has difficulty sleeping.. Vital Signs: Performed on Oct 29, 2021 09:58: 8, 5, 19.57, 1.58 sq.m, 65 in, 98 %, 67 /min, 16 /min, 118/66 mm(hg), 98.0 F (LOW), and 117.6 lbs (HIGH). Physical Examination: Constitutional - She does not appear acutely ill, Eyes - Sclerae nonicteric. Conjunctivae clear, ENMT - No lesions noted in the oral cavity, Neck - No mass or thyromegaly, Hematologic/Lymphatic - There are tiny posterior cervical nodes bilaterally and she also appears to have small submandibular nodes bilaterally. There is no clavicular or axillary adenopathy noted, Respiratory - Lungs are clear with good air movement bilaterally, Cardiovascular - Heart rhythm is regular. There is no murmur, gallop, or rub noted, Abdomen - Soft. There is mild tenderness in the right flank area. Liver and spleen are not enlarged. There is no abdominal mass or ascites noted. There are tiny inguinal lymph nodes palpable bilaterally,slightly more prominent on the left, Back/Spine - No spine or CVA tenderness noted, Extremities - No edema. Pedal pulses are palpable bilaterally, Integumentary - No rashes. No suspicious skin lesions noted, Neurologic - No focal neurologic deficits noted. Problem List: 1. Mild cervical and inguinal lymphadenopathy, FDG avid by PET, but with nondiagnostic right cervical II lymph node biopsy. 2. Chronic pain in the upper abdomen and mid back with significant associated constitutional symptoms including severe fatigue, anorexia/weight loss, low-grade fever, night sweating, itching, and generalized aching. 3. She had suspected pancreatitis, but with no clinical benefit with ERCP and temporary stent placement to the pancreatic duct. 4. She has chronic bladder dysfunction with urinary hesitancy/retention. 5. She has a history of recurrent urinary tract infection and cystitis. 6. History of urolithiasis. 7. History of endometriosis. Problems Addressed with this Encounter and Plan: Patient with mild cervical and inguinal lymphadenopathy, FDG avid by PET. She has been symptomatic for 2 years with chronic pain in the upper abdomen and mid back and with significant associated constitutional symptoms including severe fatigue, anorexia/weight loss, low-grade fever, night sweating, itching, and generalized aching. Her right cervical II lymph node biopsy on 06/03/2021 was nondiagnostic. The findings were limited to reactive germinal center and paracortical hyperplasia. At this point a specific cause for her illness has not been determined. The cervical lymph node biopsy was not only nondiagnostic for lymphoma, but it also gave no indication as to any potential nonmalignant causes. At this point I will recheck laboratory studies to include CBC, comprehensive metabolic profile, LDH level, sed rate and CRP level, amylase and lipase levels, serum iron studies, and a TSH level. I will review the blood smear. In addition, I will plan to review the PET/CT images with Dr. Evans for comparison to the prior CT scans, and I will then plan further surveillance imaging. Signed By: Jose M Goddard M.D. <<Signature on File>>
== END 2021-10-29 08:42 | disposition home or self-care (01) ==
PROVIDERS: PCP Internal Medicine; Visit Provider Internal Medicine Medical Oncology
DX: R59.0 Localized enlarged lymph nodes (principal); R10.10 Upper abdominal pain, unspecified; G89.29 Other chronic pain; R53.83 Other fatigue; N31.9 Neuromuscular dysfunction of bladder, unspecified; N30.20 Other chronic cystitis without hematuria; N80.9 Endometriosis, unspecified
CPT/HCPCS: 36415; 80053; 82150; 83540; 83550; 83615; 83690; 84443; 85025; 85651; 86140; 99205

== ENCOUNTER 2021-11-03 13:00 | Outpatient (CLI) | payer BC, SELFPAY ==
[2021-11-05 12:47] LABS: Anti-Nuclear Antibody Screen POSITIVE (NEGATIVE)
[2021-11-05 12:58] LABS: Anti-Nuclear Antibody Pattern Nuclear, Homogeneous; Anti-Nuclear Antibody Titer 1:40 titer
== END 2021-11-03 13:01 | disposition home or self-care (01) ==
LOC: ONCMED 13:01
PROVIDERS: PCP Internal Medicine; Visit Provider Internal Medicine Medical Oncology
DX: R59.1 Generalized enlarged lymph nodes (principal)
CPT/HCPCS: 36415; 86038

== ENCOUNTER 2021-11-07 08:08 | Outpatient (CLI) | payer BC, SELFPAY ==
[2021-11-07 09:59] LABS: Immunoglobulin IGA 103 mg/dL (70-400); Immunoglobulin IGG 1073 mg/dL (700-1600); Immunoglobulin IGM 76 mg/dL (40-230)
[2021-11-08 09:07] LABS: PROTEIN, TOTAL 6.7 g/dL (6.1-8.1)
[2021-11-10 11:57] LABS: KAPPA LIGHT CHAIN, FREE, SERUM 7.3 mg/L (3.3-19.4); KAPPA/LAMBDA LIGHT CHAINS FREE 0.96 (0.26-1.65); LAMBDA LIGHT CHAIN, FREE, SERU 7.6 mg/L (5.7-26.3)
[2021-11-10 13:49] LABS: Anti-Double Strand DNA AB 1 IU/mL; Jo-1 Antibody <1.0 NEG AI (<1.0 NEG); SM/RNP Antibodies <1.0 NEG AI (<1.0 NEG); SS-B/LA IGG <1.0 NEG AI (<1.0 NEG); Scleroderma Ab(Scl-70) Ab <1.0 NEG AI (<1.0 NEG); Ss-A/Ro Igg <1.0 NEG AI (<1.0 NEG)
[2021-11-10 16:57] LABS: ALBUMIN 4.3 g/dL (3.8-4.8); ALPHA 1 GLOBULIN 0.3 g/dL (0.2-0.3); ALPHA 2 GLOBULIN 0.6 g/dL (0.5-0.9); BETA 1 GLOBULIN 0.4 g/dL (0.4-0.6); BETA 2 GLOBULIN 0.3 g/dL (0.2-0.5)
[2021-11-14 14:32] LABS: Endomysial Antibody IGG SCREEN NEGATIVE
== END 2021-11-07 08:09 | disposition home or self-care (01) ==
PROVIDERS: PCP Internal Medicine; Visit Provider Internal Medicine Medical Oncology
DX: M25.50 Pain in unspecified joint (principal); R63.4 Abnormal weight loss; R50.9 Fever, unspecified; R59.1 Generalized enlarged lymph nodes
CPT/HCPCS: 82784; 83516; 83883; 84155; 84165; 86225; 86235

== ENCOUNTER 2021-11-20 12:04 | Outpatient (CLI) | payer BC, SELFPAY ==
--- NOTE | 2021-11-20 12:18 | XR_ITS ---
WS: [id number] Exam: XR chest 2V* [id number] Date/Time of Exam: 11/20/2021 12:26 PM Reason For Exam: ENLARGED LYMPH NODES Comparison 01/22/2020. Findings: The lungs are clear and fully expanded. Costophrenic angles are sharp. No infiltrates. Bronchovascula r relief appears normal. Cardiac silhouette is unremarkable. Bony elements are intact. XR/XR chest 2V* [id number] IMPRESSION: Unremarkable chest radiograph.
--- NOTE | 2021-11-20 12:18 | CT_ITS ---
WS: [id number] CT NECK WITH CONTRAST HISTORY: LYMPHADENOPATHY TECHNIQUE: Contiguous 5 mm axial images are performed through the neck with intravenous contrast. Sag ittal and coronal reformats are also submitted. All CT scans at [facility] use at least one o f these dose optimization techniques: automated exposure control; mA and/or kV adjustment per patient size (includes targeted exams where dose is matched to clinical indication); or iterative reconstruc tion. CONTRAST: CONTRAST: Omnipaque 350; 95 mL IV. DLP: 752.58 mGy.cm COMPARISON: None available. Nasopharynx, oropharynx, hypopharynx and larynx are unremarkable. No soft tissue masses or abnormal e nhancement. Torus tubarius and fossa of Rosenmuller and parapharyngeal fat are normal. No significant lymphadenopathy is identified. No adenopathy is identified especially on the RIGHT cer vical chain where PET/CT positive lymph nodes were identified on a prior exam. There are benign-appea ring level 1 and level 2 lymph nodes. Thyroid gland and salivary glands are normally enhancing with no masses. No osseous abnormalities. Small caliber distal LEFT vertebral artery. Visualized portions of the skull base demonstrate no abnormalities. Orbits and globes are within norm al limits. No soft tissue masses. Visualized paranasal sinuses and mastoid air cells are normal. Lung apices are clear. Bovine arch. CT/CT neck w con* [id number] IMPRESSION: No significant lymphadenopathy noted within the neck.
--- NOTE | 2021-11-20 12:18 | CT_ITS ---
WS: [id number] CT ABDOMEN WITH CONTRAST HISTORY: LYMPHADENOPATHY Contiguous single phase 5 mm axial imaging performed to the abdomen. Oral contrast has been provided. Coronal and sagittal reformats are submitted. All CT scans at [facility] use at least one of these dose optimization techniques: automated exposure control; mA and/or kV adjustment per patient size (includes targeted exams where dose is matched to clinical indication); or iterative reconstruct ion. CONTRAST: Omnipaque 350; 95 mL IV. DLP: 752.58 mGy.cm COMPARISON: 05/14/[address] 04/10/2021 Lower thorax: No pulmonary nodule. Normal size heart. No hiatal hernia. Liver: Normal size liver. Focal hepatic steatosis along the falciform ligament. No mass or bile duct dilatation. Portal vein is normally enhancing. Gallbladder: Prior cholecystectomy. Pancreas: Limited visualization of pancreas due to lack of oral contrast and patient's thin body habi tus. No abnormality is identified. No pancreatic duct dilatation. The body and distal pancreas are in separable from the adjacent small bowel loops. Spleen: Normal size with granulomata. Adrenals: Normal. Right kidney: Cortical cyst upper pole RIGHT kidney measures 1.0 cm. No obstruction. Left kidney: too small to characterize hypodensity in the mid kidney. No obstruction. Nonobstructing calcifications in the lower pole. Aorta: Normal. GI tract: Without oral contrast no abnormality is detected. No stomach wall thickening. Small bowel l oops are not as the patient has a very thin body habitus. Mildly hyperemic 8mm lymph node LEFT paraaortic region. There are a few additional small scattered ao rtocaval and paraaortic lymph nodes. Abdominal wall: No hernia. Visualized osseous structures: Unremarkable. CT/CT abdomen w con* [id number] IMPRESSION: 1. No acute abdominal abnormality is identified. This study is difficult to in terpret due to patient's thin body habitus and lack of oral contrast. 2. Prior cholecystectomy. 3. Small lymph nodes para-aortic and aortocaval locations with the largest ayana sures 8 mm and does not fit size criteria for malignancy.
== END 2021-11-20 12:05 | disposition home or self-care (01) ==
LOC: RAD 12:08
PROVIDERS: PCP Internal Medicine; Visit Provider Internal Medicine Medical Oncology
DX: R59.0 Localized enlarged lymph nodes (principal); Z90.49 Acquired absence of other specified parts of digestive tract
CPT/HCPCS: 70491; 71046; 74160; Q9967

== ENCOUNTER 2021-12-11 12:03 | Oncology outpatient (recurring) (ONCR) | payer BC, SELFPAY ==
--- NOTE | 2021-12-11 12:24 | CT_ITS ---
WS: [id number] CT PELVIS WITHOUT CONTRAST. HISTORY: lymphadenopathy, abnormal PET scan TECHNIQUE: Contiguous imaging is performed of the pelvis without contrast. Coronal and sagittal refor mats are reviewed. All CT scans at [facility] use at least one of these dose optimization katia hniques: automated exposure control; mA and/or kV adjustment per patient size (includes targeted exam s where dose is matched to clinical indication); or iterative reconstruction. DLP: 560.68 mGy.cm COMPARISON: PET CT 04/10/2021. CT 05/14/2020 Good distention of colon with oral contrast. No significant adenopathy is noted within the pelvis. PE T CT positive findings in the LEFT retroperitoneum are not evident. I suspect this may have been excr eted from the urological system. If there are small lymph nodes they are subcentimeter. At the inguin al regions the PET/CT positive lymph nodes are very small caliber, less than a centimeter. No enlarge d lymph nodes at the inguinal regions. No free fluid in the pelvis. Prior hysterectomy. Urinary bladder is negative. CT/CT pelvis wo con [id number] IMPRESSION: 1. No suspiciously enlarged lymph nodes in the pelvis to correspond to the PET /CT findings. 2. No ascites. 3. Prior hysterectomy.
== END 2021-12-30 23:59 | disposition home or self-care (01) ==
PROVIDERS: PCP Internal Medicine; Visit Provider Internal Medicine Medical Oncology
DX: R59.1 Generalized enlarged lymph nodes (principal)
CPT/HCPCS: 72192

== ENCOUNTER 2022-03-16 10:51 | Outpatient (CLI) | payer BC, SELFPAY ==
--- NOTE | 2022-03-16 11:02 | MM_ITS ---
WS: [id number] VIEWS: MLO and CC views both breasts. 3D digital tomosynthesis is also included in this exam. Comparison made with prior exam of 02/23/2020. Findings: There was no sign of mass, architectural distortion or suspicious calcification in either breast. Sc attered fibroglandular densities MM/[place] [id number] Impression: BI-RADS: 2-Benign FOLLOW-UP: 1 Year Follow-up This mammogram was also analyzed by the Computer Aided Detection System R2 Imag e Bracer.
== END 2022-03-16 10:52 | disposition home or self-care (01) ==
LOC: RAD 10:51
PROVIDERS: PCP Internal Medicine; Visit Provider Internal Medicine
DX: Z12.31 Encounter for screening mammogram for malignant neoplasm of breast (principal)
CPT/HCPCS: 77063; 77067

== ENCOUNTER → 2022-03-31 09:26 | Outpatient (BNVA) | payer BC, SELFPAY | PROVIDERS: PCP Internal Medicine; Visit Provider Internal Medicine | DX: R10.13 Epigastric pain (principal); R30.0 Dysuria; R39.9 Unspecified symptoms and signs involving the genitourinary system | CPT/HCPCS: 81000 ==

== ENCOUNTER 2022-05-19 10:56 | Outpatient (CLI) | payer BC, SELFPAY ==
[2022-05-19 11:40] LABS: Basophils # 0.1 10^3/uL (0.0-0.1); Basophils % 0.6 %; Eosinophils # 0.1 10^3/uL (0.0-0.8); Eosinophils % 1.2 %; Hematocrit 39.2 % (37.0-47.0); Lymphocytes # 2.6 10^3/uL (0.8-4.8); Lymphocytes % 30.7 %; Mean Corpuscular HGB Conc 33.2 g/dL (30.0-36.0); Mean Corpuscular Hemoglobin 29.3 pg (28.0-34.0); Mean Corpuscular Volume 88.3 fl (81-99); Mean Platelet Volume 10.3 fL (7.4-10.4); Monocytes # 0.6 10^3/uL (0.2-0.9); Monocytes % 6.5 %; Neutrophils % 60.8 %; Nucleated Red Blood Cells % 0 %; Platelet Count 252 10^3/cmm (130-400); Red Blood Count 4.44 10^6/uL (4.1-5.3); Red Cell Distribution Width 12.7 % (12.1-15.1); White Blood Count 8.6 10^3/uL (4.0-10.0)
[2022-05-19 12:02] LABS: Alanine Aminotransferase 25 U/L (0-33); Albumin Level 4.6 g/dL (3.5-5.2); Alkaline Phosphatase 56 U/L (35-105); Anion Gap 13.9 (5-19); Aspartate Amino Transferase 20 U/L (0-32); Blood Urea Nitrogen 14 mg/dL (6-20); Calcium 9.5 mg/dL (8.5-10.5); Carbon Dioxide 26 mmol/L (22-29); Chloride 99 mmol/L (98-107); Globulin 2.4 g/dL (1.3-4.6); Glomerular Filtration Rate 92.2 mL/min (90-130); Glucose 85 mg/dL (65-115); Osmolality Calculated 280 mOsm/kg (285-295); Potassium 3.9 mmol/L (3.5-5.1); Sodium 135 mmol/L (136-145); Total Bilirubin 0.5 mg/dL (0.15-1.2)
== END 2022-05-19 10:57 | disposition home or self-care (01) ==
PROVIDERS: PCP Internal Medicine; Visit Provider Urology
DX: N30.20 Other chronic cystitis without hematuria (principal)
CPT/HCPCS: 36415; 80053; 81003; 85025

== ENCOUNTER 2022-06-01 14:13 | Outpatient (CLI) | payer BC, SELFPAY ==
[2022-06-02 12:57] LABS: C-Peptide 0.68 ng/mL (0.80-3.85)
[2022-06-02 13:37] LABS: Insulin ( Reference Lab Test) 1.7 uIU/mL
[2022-06-04 01:32] LABS: Beta-Hydroxybutyrate 0.21 mmol/L
[2022-06-10 21:03] LABS: GAD 65 IA-2 Antibody <5.4 U/mL (<5.4); GAD Insulin Autoantibody <0.4 U/mL (<0.4); Glutamic Acid Decarboxylase 65 <5 IU/mL (<5)
== END 2022-06-01 14:14 | disposition home or self-care (01) ==
LOC: LAB 14:16
PROVIDERS: PCP Internal Medicine; Visit Provider Internal Medicine
DX: E16.2 Hypoglycemia, unspecified (principal)
CPT/HCPCS: 36415; 82010; 83525; 84206; 84681; 86337; 86341

== ENCOUNTER → 2022-09-30 13:14 | Outpatient (BNVA) | payer BC, SELFPAY | PROVIDERS: PCP Internal Medicine; Visit Provider Nurse Practitioner Women's Health | DX: R10.2 Pelvic and perineal pain (principal) | CPT/HCPCS: 76830 ==

== ENCOUNTER 2023-02-22 07:36 | Outpatient (CLI) | payer BC, SELFPAY ==
[2023-02-22 08:46] LABS: Basophils # 0.1 10^3/uL (0.0-0.1); Basophils % 0.8 %; Eosinophils # 0.1 10^3/uL (0.0-0.8); Eosinophils % 0.8 %; Hematocrit 41.9 % (37.0-47.0); Hemoglobin 13.6 g/dL (11.5-15.3); Lymphocytes # 2.9 10^3/uL (0.8-4.8); Lymphocytes % 41.6 %; Mean Corpuscular HGB Conc 32.5 g/dL (30.0-36.0); Mean Corpuscular Hemoglobin 28.7 pg (28.0-34.0); Mean Corpuscular Volume 88.4 fl (81-99); Mean Platelet Volume 10.2 fL (7.4-10.4); Monocytes # 0.5 10^3/uL (0.2-0.9); Monocytes % 7.6 %; Neutrophils # 3.45 10^3/uL (1.8-7.7); Neutrophils % 49.1 %; Nucleated Red Blood Cells % 0 %; Platelet Count 306 10^3/cmm (130-400); Red Blood Count 4.74 10^6/uL (4.1-5.3); Red Cell Distribution Width 12.3 % (12.1-15.1); White Blood Count 7.1 10^3/uL (4.0-10.0)
[2023-02-22 09:01] LABS: Alanine Aminotransferase 16 U/L (0-33); Albumin Level 4.5 g/dL (3.5-5.2); Alkaline Phosphatase 54 U/L (35-105); Aspartate Amino Transferase 16 U/L (0-32); Blood Urea Nitrogen 8 mg/dL (6-20); Calcium 9.3 mg/dL (8.5-10.5); Carbon Dioxide 29 mmol/L (22-29); Chloride 98 mmol/L (98-107); Ferritin 152 ng/mL (15-150); Globulin 1.9 g/dL (1.3-4.6); Glomerular Filtration Rate 78.7 mL/min (90-130); Glucose 84 mg/dL (65-115); Osmolality Calculated 276 mOsm/kg (285-295); Sodium 134 mmol/L (136-145); Total Bilirubin 0.4 mg/dL (0.15-1.2); Total Protein 6.4 g/dL (6.6-8.7)
[2023-02-26 13:40] LABS: Adrenocorticotropic Hormone 16 pg/mL (6-50)
[2023-02-28 01:54] LABS: Histoplasma Galactomannan Ag <0.2 ng/mL
== END 2023-02-22 07:37 | disposition home or self-care (01) ==
LOC: LAB 07:42
PROVIDERS: PCP Internal Medicine; Visit Provider Internal Medicine
DX: R63.4 Abnormal weight loss (principal)
CPT/HCPCS: 36415; 80053; 82024; 82533; 82728; 83520; 85025; 87385

== ENCOUNTER 2023-04-12 08:13 | Outpatient (CLI) | payer BC, SELFPAY ==
[2023-04-12 08:45] LABS: Basophils % 0.6 %; Eosinophils # 0.1 10^3/uL (0.0-0.8); Eosinophils % 1.3 %; Lymphocytes # 2.5 10^3/uL (0.8-4.8); Lymphocytes % 45.8 %; Mean Corpuscular HGB Conc 32.5 g/dL (30-55); Mean Corpuscular Hemoglobin 29.4 pg (27-33); Mean Corpuscular Volume 90.5 fl (85-98); Mean Platelet Volume 10.1 fL (7.4-10.4); Monocytes # 0.4 10^3/uL (0.2-0.9); Monocytes % 7.7 %; Neutrophils # 2.42 10^3/uL (1.8-7.7); Neutrophils % 44.4 %; Nucleated Red Blood Cells % 0 %; Platelet Count 252 10^3/cmm (157-399); Red Blood Count 4.42 10^6/uL (3.85-5.65); Red Cell Distribution Width 13.2 % (12.1-15.1); White Blood Count 5.44 10^3/uL (3.29-11.43)
[2023-04-12 09:30] LABS: 25 Hydroxy Vitamin D 29 ng/mL (30-100); Alanine Aminotransferase 15 U/L (0-33); Albumin Level 4.4 g/dL (3.5-5.2); Alkaline Phosphatase 49 U/L (35-105); Anion Gap 10.8 (5-19); Aspartate Amino Transferase 18 U/L (0-32); Blood Urea Nitrogen 12 mg/dL (6-20); Carbon Dioxide 29 mmol/L (22-29); Chloride 105 mmol/L (98-107); Chol HDL Ratio 2.18 mg/dL (0.0-4.40); Cholesterol 183 mg/dL (0-200); Ferritin 89 ng/mL (15-150); Globulin 1.9 g/dL (1.3-4.6); Glomerular Filtration Rate 78.7 mL/min (90-130); Glucose 83 mg/dL (65-115); HDL Cholesterol 84 mg/dL (60-100); Iron 88 ug/dL (37-145); LDL Cholesterol Calculated 87 mg/dL (50-129); LDL HDL Ratio 1.04 RATIO (0.00-3.22); Lactate Dehydrogenase 139 U/L (135-214); Magnesium 2.1 mg/dL (1.7-2.3); Osmolality Calculated 289 mOsm/kg (285-295); Percent Saturation 42.3 % (20-50); Phosphorus 2.9 mg/dL (2.5-4.5); Potassium 4.8 mmol/L (3.5-5.1); Sodium 140 mmol/L (136-145); Thyroid Stimulating Hormone 2.38 uIU/mL (0.27-4.20); Total Bilirubin 0.5 mg/dL (0.15-1.2); Total Iron Binding Capacity 208 mcg/dl; Total Protein 6.3 g/dL (6.6-8.7); Triglycerides 61 mg/dL (0-150); Unsaturated Iron Binding 120 ug/dL (112-347); Uric Acid 3.4 mg/dL (2.4-5.7)
[2023-04-12 09:56] LABS: T3 Free 2.4 PG/ML (2.0-4.4)
[2023-04-18 14:30] LABS: Pancreatic Elastase-1 424 mcg/g
== END 2023-04-12 08:14 | disposition home or self-care (01) ==
PROVIDERS: PCP Internal Medicine; Visit Provider Internal Medicine
DX: K86.89 Other specified diseases of pancreas (principal)
CPT/HCPCS: 36415; 80053; 80061; 82306; 82728; 83520; 83540; 83550; 83615; 83735; 84100; 84439; 84443; 84481; 84550; 85025; 86663